=== PATIENT | female | born 1955 | race Caucasian/White ===

== ENCOUNTER 2020-03-12 09:20 | Day surgery (SDC) | payer OTHER ==
[~2020-03-12 09:20] MED LIST: CLEOCIN HCL300 MG PO; CLONAZEPAM1 M1 PO; ELAVIL PO; LIPITOR20 MG PO; PERCOCET 5/3251 TAB PO; SYNTHROID75 MCG PO
[2020-03-12] MEDS ORDERED: OXYC1TAB9 PO (13:24)
[2020-03-12] MEDS ORDERED: Septra Ds Tablet PO (13:24)
== END 2020-03-12 17:35 | disposition home or self-care (01) ==
LOC: CIR.AMB 09:20
PROVIDERS: ATTEND Orthopaedic Surgery Sports Medicine
DX: M75.121 Complete rotator cuff tear or rupture of right shoulder, not specified as traumatic (principal); Z20.828 Contact with and (suspected) exposure to other viral communicable diseases
CPT/HCPCS: 29827; 23406; 29822; 29826; C1776